=== PATIENT | female | born 1985 | race African-American/Black ===

== ENCOUNTER 2019-10-22 04:22 | Emergency (ER) | payer MEDICAID ==
[2019-10-22] MEDS ORDERED: METFORMIN500 M2 PO (04:47)
[2019-10-22] MEDS ORDERED: LISINOPRIL5 MG PO (04:47)
[2019-10-22] MEDS ORDERED: ROWEEPRA500 MG PO (04:50)
[2019-10-22] MEDS ORDERED: LOVASTATIN10 MG PO (04:51)
[2019-10-22 04:55] LABS: HEMATOCRIT 37.4 % (37.0-47.0); HEMOGLOBIN 12.3 g/dl (12.0-16.0); IMMATURE GRANULOCYTES 0.4 % (0.0-5.0); MEAN CELL VOLUME 75.6 fL CALC (80.0-100.0); MEAN CORPUSCULAR HGB 24.8 pG CALC (26.0-32.0); MEAN CORPUSCULAR HGB CONC 32.9 g/dL CAL (32.0-36.0); NEUT# 4.03 thou/uL (2.00-7.15); RED BLOOD COUNT 4.95 mill/uL (4.20-5.60)
[2019-10-22 05:25] LABS: ALBUMIN 4.2 g/dL (3.2-5.0); ALKALINE PHOSPHATASE 134 u/l (38-126); ANION GAP 13 (6-22 (CALC)); BILIRUBIN, TOTAL 0.4 mg/dL (0.0-1.4); BUN 8 mg/dL (7-17); BUN/CREATININE RATIO 14 (12-20 (CALC)); CARBON DIOXIDE 26 mmol/l (22-30); CHLORIDE 102 mmol/l (95-108); CREATININE 0.6 mg/dL (0.5-1.0); ETHYL ALCOHOL 0 mg/dl (0-30); GFR > 60 ML/MIN (>=60 (CALC)); GFR FOR AFR.AMER. > 60 ML/MIN (>=60 (CALC)); SGOT/AST 26 u/l (14-36); SODIUM 137 mmol/l (137-146); TOTAL PROTEIN 7.5 g/dL (6.3-8.2)
[2019-10-22 05:32] LABS: URINE BILIRUBIN - DIPSTICK NEGATIVE (NEGATIVE); URINE BLOOD DIPSTICK NEGATIVE (NEGATIVE); URINE COLOR YELLOW; URINE GLUCOSE - DIPSTICK NEGATIVE (NEGATIVE); URINE KETONE NEGATIVE (NEGATIVE); URINE NITRITE - DIPSTICK NEGATIVE (Negative); URINE PH 5.5 (4.5-8.0); URINE PROTEIN - DIPSTICK NEGATIVE (NEG-TRACE); URINE SPECIFIC GRAVITY 1.025; URINE UROBILINOGEN - DIPSTICK 0.2 E.U./dL (0.2)
[2019-10-22 05:35] LABS: URINE LEUK ESTERASE TRACE (NEGATIVE)
[2019-10-22 05:37] LABS: MYOGLOBIN 18 ng/mL (0 - 62)
[2019-10-22] MEDS ORDERED: KEPPRA500 M2 PO (06:30)
[2019-10-22 06:43] VITALS: BP 120/62
== END 2019-10-22 06:41 | disposition home or self-care (01) ==
LOC: ED 04:22
PROVIDERS: Family Medicine
DX: G40.909 Epilepsy, unspecified, not intractable, without status epilepticus (principal); E11.9 Type 2 diabetes mellitus without complications; I10 Essential (primary) hypertension; Z79.84 Long term (current) use of oral hypoglycemic drugs; Z79.899 Other long term (current) drug therapy
CPT/HCPCS: J1953

== ENCOUNTER 2020-07-30 12:12 | Emergency (ER) | payer OTHER ==
[~2020-07-30] VITALS: Ht 157.5 cm; Wt 81.0 kg
[~2020-07-30 12:12] MED LIST: KEPPRA500 M2 PO; LISINOPRIL5 MG PO; LOVASTATIN10 MG PO; METFORMIN500 M2 PO; ROWEEPRA500 MG PO
[2020-07-30 13:19] LABS: HEMATOCRIT 38.4 % (37.0-47.0); HEMOGLOBIN 12.6 g/dl (12.0-16.0); IMMATURE GRANULOCYTES 0.4 % (0.0-5.0); MEAN CELL VOLUME 75.1 fL CALC (80.0-100.0); MEAN CORPUSCULAR HGB 24.7 pG CALC (26.0-32.0); MEAN CORPUSCULAR HGB CONC 32.8 g/dL CAL (32.0-36.0); NEUT# 5.64 thou/uL (2.00-7.15); RED BLOOD COUNT 5.11 mill/uL (4.20-5.60)
[2020-07-30 13:25] LABS: URINE BILIRUBIN - DIPSTICK NEGATIVE (NEGATIVE); URINE BLOOD DIPSTICK NEGATIVE (NEGATIVE); URINE COLOR YELLOW; URINE GLUCOSE - DIPSTICK NEGATIVE (NEGATIVE); URINE KETONE NEGATIVE (NEGATIVE); URINE LEUK ESTERASE NEGATIVE (NEGATIVE); URINE PH 7.5 (4.5-8.0); URINE PROTEIN - DIPSTICK NEGATIVE (NEG-TRACE); URINE UROBILINOGEN - DIPSTICK 0.2 E.U./dL (0.2)
[2020-07-30 13:30] LABS: URINE NITRITE - DIPSTICK NEGATIVE (Negative)
[2020-07-30 13:36] LABS: ALBUMIN 4.5 g/dL (3.2-5.0); ALKALINE PHOSPHATASE 93 u/l (38-126); ANION GAP 14 (6-22 (CALC)); BUN 4 mg/dL (7-17); BUN/CREATININE RATIO 7 (12-20 (CALC)); CARBON DIOXIDE 25 mmol/l (22-30); CHLORIDE 101 mmol/l (95-108); CREATININE 0.6 mg/dL (0.5-1.0); ETHYL ALCOHOL 0 mg/dl (0-30); GFR > 60 ML/MIN (>=60 (CALC)); GFR FOR AFR.AMER. > 60 ML/MIN (>=60 (CALC)); LIPASE 37 u/l (23-300); MAGNESIUM 2.2 mg/dL (1.6-2.3); POTASSIUM 4.1 mmol/l (3.5-5.1); SGOT/AST 33 u/l (14-36); SODIUM 136 mmol/l (137-146); TOTAL PROTEIN 8.1 g/dL (6.3-8.2)
[2020-07-30 13:42] LABS: ACT PARTIAL THROMBO TIME 23.6 SECONDS (20.0-32.5); PROTHROMBIN TIME 9.7 SECONDS (9.0-12.5)
[2020-07-30 13:45] LABS: BILIRUBIN, TOTAL 0.8 mg/dL (0.0-1.4)
[2020-07-30 15:06] VITALS: BP 112/64
== END 2020-07-30 15:14 | disposition home or self-care (01) ==
LOC: ED 12:12
DX: G40.909 Epilepsy, unspecified, not intractable, without status epilepticus (principal); M25.512 Pain in left shoulder; M25.551 Pain in right hip; I10 Essential (primary) hypertension; E11.9 Type 2 diabetes mellitus without complications; Z79.84 Long term (current) use of oral hypoglycemic drugs

== ENCOUNTER 2020-11-08 20:15 | Emergency (ER) | payer OTHER ==
[~2020-11-08] VITALS: Ht 157.5 cm; Wt 93.2 kg
[2020-11-08 20:49] LABS: HEMATOCRIT 36.3 % (37.0-47.0); HEMOGLOBIN 12.1 g/dl (12.0-16.0); IMMATURE GRANULOCYTES 0.3 % (0.0-5.0); MEAN CELL VOLUME 73.8 fL CALC (80.0-100.0); MEAN CORPUSCULAR HGB 24.6 pG CALC (26.0-32.0); MEAN CORPUSCULAR HGB CONC 33.3 g/dL CAL (32.0-36.0); NEUT# 3.93 thou/uL (2.00-7.15); RED BLOOD COUNT 4.92 mill/uL (4.20-5.60); RED CELL DISTRI WIDTH 14.2 % (11.5-15.5)
[2020-11-08 20:50] LABS: URINE BILIRUBIN - DIPSTICK NEGATIVE (NEGATIVE); URINE BLOOD DIPSTICK NEGATIVE (NEGATIVE); URINE COLOR YELLOW; URINE GLUCOSE - DIPSTICK NEGATIVE (NEGATIVE); URINE KETONE TRACE mg/dL (NEGATIVE); URINE LEUK ESTERASE NEGATIVE (NEGATIVE); URINE PH 5.5 (4.5-8.0); URINE PROTEIN - DIPSTICK NEGATIVE (NEG-TRACE); URINE SPECIFIC GRAVITY 1.025; URINE UROBILINOGEN - DIPSTICK 0.2 E.U./dL (0.2)
[2020-11-08 20:51] LABS: URINE NITRITE - DIPSTICK NEGATIVE (Negative)
[2020-11-08 21:05] LABS: ALBUMIN 3.9 g/dL (3.2-5.0); ALKALINE PHOSPHATASE 76 u/l (38-126); ANION GAP 14 (6-22 (CALC)); BUN 5 mg/dL (7-17); BUN/CREATININE RATIO 9 (12-20 (CALC)); CARBON DIOXIDE 23 mmol/l (22-30); CHLORIDE 104 mmol/l (95-108); CREATININE 0.6 mg/dL (0.5-1.0); ETHYL ALCOHOL 0 mg/dl (0-30); GFR > 60 ML/MIN (>=60 (CALC)); GFR FOR AFR.AMER. > 60 ML/MIN (>=60 (CALC)); PHENYTOIN (DILANTIN) < 3 ug/mL (10 - 20); POTASSIUM 3.7 mmol/l (3.5-5.1); SGOT/AST 27 u/l (14-36); SODIUM 138 mmol/l (137-146); TOTAL PROTEIN 7.2 g/dL (6.3-8.2)
[2020-11-08 21:07] LABS: BILIRUBIN, TOTAL 0.3 mg/dL (0.0-1.4)
[2020-11-08 21:26] VITALS: BP 118/66
== END 2020-11-08 21:21 | disposition home or self-care (01) ==
LOC: ED 20:15
PROVIDERS: Emergency Medicine
DX: G40.909 Epilepsy, unspecified, not intractable, without status epilepticus (principal); E11.9 Type 2 diabetes mellitus without complications; I10 Essential (primary) hypertension; Z79.84 Long term (current) use of oral hypoglycemic drugs

== ENCOUNTER 2020-12-19 11:21 | Emergency (ER) | payer OTHER ==
[2020-12-19 12:06] LABS: HEMATOCRIT 40.6 % (37.0-47.0); HEMOGLOBIN 13.2 g/dl (12.0-16.0); IMMATURE GRANULOCYTES 0.3 % (0.0-5.0); MEAN CELL VOLUME 75.9 fL CALC (80.0-100.0); MEAN CORPUSCULAR HGB 24.7 pG CALC (26.0-32.0); MEAN CORPUSCULAR HGB CONC 32.5 g/dL CAL (32.0-36.0); NEUT# 1.79 thou/uL (2.00-7.15); RED BLOOD COUNT 5.35 mill/uL (4.20-5.60); RED CELL DISTRI WIDTH 14.3 % (11.5-15.5)
[2020-12-19 12:11] LABS: URINE BILIRUBIN - DIPSTICK NEGATIVE (NEGATIVE); URINE BLOOD DIPSTICK TRACE-INTACT (NEGATIVE); URINE COLOR YELLOW; URINE GLUCOSE - DIPSTICK NEGATIVE (NEGATIVE); URINE KETONE NEGATIVE (NEGATIVE); URINE PROTEIN - DIPSTICK NEGATIVE (NEG-TRACE); URINE UROBILINOGEN - DIPSTICK 0.2 E.U./dL (0.2)
[2020-12-19 12:14] LABS: URINE LEUK ESTERASE SMALL (NEGATIVE); URINE NITRITE - DIPSTICK NEGATIVE (Negative)
[2020-12-19 12:15] LABS: URINE BACTERIA FEW hpf; URINE EPITHELIAL CELLS FEW EPI/hpf (0-FEW); URINE RBC 0-2 RBC/hpf (0-5)
[2020-12-19 12:21] LABS: ALBUMIN 4.2 g/dL (3.2-5.0); ALKALINE PHOSPHATASE 68 u/l (38-126); ANION GAP 16 (6-22 (CALC)); BUN 5 mg/dL (7-17); BUN/CREATININE RATIO 8 (12-20 (CALC)); CARBON DIOXIDE 24 mmol/l (22-30); CHLORIDE 103 mmol/l (95-108); CREATININE 0.7 mg/dL (0.5-1.0); GFR > 60 ML/MIN (>=60 (CALC)); GFR FOR AFR.AMER. > 60 ML/MIN (>=60 (CALC)); LIPASE 65 u/l (23-300); POTASSIUM 4.1 mmol/l (3.5-5.1); PROTHROMBIN TIME 10.4 SECONDS (9.0-12.5); SODIUM 138 mmol/l (137-146); TOTAL PROTEIN 8.2 g/dL (6.3-8.2)
[2020-12-19 12:23] LABS: BILIRUBIN, TOTAL 0.7 mg/dL (0.0-1.4); SGOT/AST 58 u/l (14-36)
[2020-12-19 12:55] VITALS: BP 104/58
== END 2020-12-19 13:06 | disposition home or self-care (01) ==
LOC: ED 11:21
PROVIDERS: Family Medicine
DX: U07.1 COVID-19 (principal); N39.0 Urinary tract infection, site not specified; E11.9 Type 2 diabetes mellitus without complications; I10 Essential (primary) hypertension; G40.909 Epilepsy, unspecified, not intractable, without status epilepticus

== ENCOUNTER 2020-12-21 18:23 | Inpatient (IN) | payer OTHER ==
[~2020-12-21] VITALS: Ht 157.5 cm; Wt 100.0 kg
--- NOTE | 2020-12-21 18:29 | NUR ---
PT IMMEDIATELY TO RM 9 VIA EMS STRETCHER FOR B/S TRIAGE.
[2020-12-21 18:58] LABS: HEMATOCRIT 39.2 % (37.0-47.0); HEMOGLOBIN 12.8 g/dl (12.0-16.0); IMMATURE GRANULOCYTES 0.2 % (0.0-5.0); MEAN CELL VOLUME 75.7 fL CALC (80.0-100.0); MEAN CORPUSCULAR HGB 24.7 pG CALC (26.0-32.0); MEAN CORPUSCULAR HGB CONC 32.7 g/dL CAL (32.0-36.0); NEUT# 2.37 thou/uL (2.00-7.15); RED BLOOD COUNT 5.18 mill/uL (4.20-5.60); RED CELL DISTRI WIDTH 14.2 % (11.5-15.5)
--- NOTE | 2020-12-21 18:58 | NUR ---
REPORT TO MONY YOUNG
[2020-12-21 19:00] LABS: GFR > 60 ML/MIN (>=60 (CALC)); GFR FOR AFR.AMER. > 60 ML/MIN (>=60 (CALC))
--- NOTE | 2020-12-21 19:00 | NUR ---
IN ROOM INRODUCED SELF TO PT. NO C/O V/S STABLE.
[2020-12-21 19:14] LABS: ALBUMIN 4.2 g/dL (3.2-5.0); ALKALINE PHOSPHATASE 76 u/l (38-126); ANION GAP 15 (6-22 (CALC)); BILIRUBIN, TOTAL 0.5 mg/dL (0.0-1.4); BUN 5 mg/dL (7-17); BUN/CREATININE RATIO 8 (12-20 (CALC)); C-REACTIVE PROTEIN 1.3 mg/dL (0-0.9); CARBON DIOXIDE 23 mmol/l (22-30); CHLORIDE 103 mmol/l (95-108); CREATININE 0.6 mg/dL (0.5-1.0); GFR > 60 ML/MIN (>=60 (CALC)); GFR FOR AFR.AMER. > 60 ML/MIN (>=60 (CALC)); SGOT/AST 51 u/l (14-36); SODIUM 136 mmol/l (137-146); TOTAL PROTEIN 8.4 g/dL (6.3-8.2)
--- NOTE | 2020-12-21 20:00 | NUR ---
PT. MADE AWARE OF ADMISSION, VERBALIZED UNDERSTANDING.
[2020-12-21] MEDS ORDERED: KEPPRA500 M2 PO (20:57)
--- NOTE | 2020-12-21 21:28 | NUR ---
Admission Note Report Given to: GHULAM YOUNG Transported by: Wheelchair X Stretcher Transported with: X Nurse Transporter X Patent IV X O2 X [employer] Location: ICU X [facility]
--- NOTE | 2020-12-21 21:30 | NUR ---
PT. TAKEN TO [facility] FLOOR VIA W/C NO C/O AT THIS TIME.
[2020-12-21 21:34] VITALS: BP 110/74
--- NOTE | 2020-12-21 22:29 | NUR ---
PATIENT ARRIVED TO THE FLOOR/ROOM 285 AT 2134 IN STABLE CONDITION VIA WC ESCORTED BY STAFF. PATIENT IS COVID +. O2 2L N/C IN PLACE. RESPIRATIONS EVEN AND SHALLOW. LUNG SOUNDS DIMINISHED THROUGHTOUT. HR REG. ASSESSMENT COMPLETED AND CHARTED. FALL PRECAUTIONS IN PLACE. IVF INITIATED. BED IN LOW POSITION. CALL LIGHT WITHIN REACH.
[2020-12-22 05:00] VITALS: BP 115/78
--- NOTE | 2020-12-22 05:03 | NUR ---
REPORT REC FROM Madison COSTELLO RN. PT LAYING IN BED. NO DISTRESS NOTED. CALL LIGHT WITHIN REACH.
[2020-12-22 06:00] LABS: HEMATOCRIT 39.7 % (37.0-47.0); HEMOGLOBIN 12.7 g/dl (12.0-16.0); IMMATURE GRANULOCYTES 0.3 % (0.0-5.0); MEAN CELL VOLUME 76.9 fL CALC (80.0-100.0); MEAN CORPUSCULAR HGB 24.6 pG CALC (26.0-32.0); NEUT# 1.64 thou/uL (2.00-7.15); RED BLOOD COUNT 5.16 mill/uL (4.20-5.60); RED CELL DISTRI WIDTH 14.3 % (11.5-15.5)
[2020-12-22 06:24] LABS: ALBUMIN 3.9 g/dL (3.2-5.0); ALKALINE PHOSPHATASE 63 u/l (38-126); ANION GAP 17 (6-22 (CALC)); BILIRUBIN, TOTAL 0.3 mg/dL (0.0-1.4); BUN 6 mg/dL (7-17); BUN/CREATININE RATIO 11 (12-20 (CALC)); C-REACTIVE PROTEIN 1.3 mg/dL (0-0.9); CARBON DIOXIDE 24 mmol/l (22-30); CHLORIDE 105 mmol/l (95-108); CREATININE 0.6 mg/dL (0.5-1.0); GFR > 60 ML/MIN (>=60 (CALC)); GFR FOR AFR.AMER. > 60 ML/MIN (>=60 (CALC)); POTASSIUM 4.6 mmol/l (3.5-5.1); SGOT/AST 48 u/l (14-36); SODIUM 141 mmol/l (137-146); TOTAL PROTEIN 7.4 g/dL (6.3-8.2)
[2020-12-22 07:15] VITALS: BP 118/78
--- NOTE | 2020-12-22 07:15 | NUR ---
PATIENT SITTING UP IN CHAIR AT THIS TIME. ANNUAL GIVING OFFICER DONE SEE INTERVENTIONS. PATIENT ALERT AND ORIENTED AND BED LINEN CHANGED DUE TO IV COMING APART AND LEAKING ON LINEN. PATIENTS LUNG GARCIA ARE DIMINISHED AT THIS TIME. PATIENT DENIES ANY PAIN AT THIS TIME. O2 REMAINS ON AT 2 LITERS AND SPO2 IS 97%. PATIENT GIVEN EDUCATION ON COVID AND RECOVERY AND VERBALIZES UNDERSTANDING OF EDUCATION. PATIENT ASSISTED BACK TO BED AND SIDERAILS ARE UP AND PADDED DUE TO HISTORY OF SEIZURES. CALL LIGHT WITHIN REACH.
--- NOTE | 2020-12-22 08:15 | NUR ---
PATIENT IV FOUND TO BE INFILTRATED AT THIS TIME. IV REMOVED AND NEW IV STARTED #22 IN RIGHT HAND. ICE PACK PLACED ON LAC TO HELP WITH INFILTRATIONS. NO REDDNESS NOTED AND SMALL EDEMA NOTED. PATIENT TOLERATED PROCEEDURE WITHOUT INCIDENT.
--- NOTE | 2020-12-22 09:38 | NUR ---
PT note Patient is screened for PT intervention and no needs are identified at this time
--- NOTE | 2020-12-22 11:51 | NUR ---
PATIENT RESTING IN BED AT THIS TIME. O2 REMAINS ON AT 2 LITERS. PATIENT IS EXHIBITING A DRY NON-PRODUCTIVE COUGH AT THIS TIME. PATIENT DENIES ANY PAIN. LEFT AC INFILTRATE SITE SWELLING HAS DECREASED AND PATIENT STATES IT IS NOT "HURTING" NO REDDNESS NOTED. SIDERAILS ARE UP X 2 AND PADDED DUE TO HISTORY OF SEIZURES. CALL LIGHT WITHIN REACH.
[2020-12-22 15:08] VITALS: BP 130/73
--- NOTE | 2020-12-22 15:28 | NUR ---
PATIENT RESTING IN BED AT THIS TIME. DENIES ANY PAIN OR NEEDS O2 REMAINS ON AT 2 LITERS. SIDERAILS ARE UP CALL LIGHT IS WITHIN REACH.
[2020-12-22 19:00] VITALS: BP 136/76
--- NOTE | 2020-12-22 20:00 | NUR ---
Received PT from day shift nurse. Pt oriented to person, place and time, alert, awake and cooperative. Assesment documented. Pt educated about plan of care, medications, covid-19 precautions and falls, safety precautions.
[2020-12-23] VITALS: BP 130/71
--- NOTE | 2020-12-23 | NUR ---
Hourly roundig provided. Pt observed sleep and calm, no complaint about pain. Re-educated about plan of care and medications.
--- NOTE | 2020-12-23 04:16 | NUR ---
Hourly rounding provided. Vitals signs are stable. No complain about pain. Re- educated about plan of care.
[2020-12-23 04:30] VITALS: BP 130/71
[2020-12-23 05:10] LABS: HEMOGLOBIN 10.9 g/dl (12.0-16.0); IMMATURE GRANULOCYTES 0.3 % (0.0-5.0); MEAN CELL VOLUME 76.2 fL CALC (80.0-100.0); MEAN CORPUSCULAR HGB 24.7 pG CALC (26.0-32.0); MEAN CORPUSCULAR HGB CONC 32.4 g/dL CAL (32.0-36.0); NEUT# 1.9 thou/uL (2.00-7.15); RED BLOOD COUNT 4.41 mill/uL (4.20-5.60); RED CELL DISTRI WIDTH 14.3 % (11.5-15.5)
[2020-12-23 05:21] LABS: HEMATOCRIT 33.6 % (37.0-47.0)
[2020-12-23 05:43] LABS: ALBUMIN 3.3 g/dL (3.2-5.0); ALKALINE PHOSPHATASE 58 u/l (38-126); ANION GAP 12 (6-22 (CALC)); BILIRUBIN, TOTAL 0.2 mg/dL (0.0-1.4); BUN 7 mg/dL (7-17); BUN/CREATININE RATIO 13 (12-20 (CALC)); CARBON DIOXIDE 27 mmol/l (22-30); CHLORIDE 105 mmol/l (95-108); CREATININE 0.6 mg/dL (0.5-1.0); GFR > 60 ML/MIN (>=60 (CALC)); GFR FOR AFR.AMER. > 60 ML/MIN (>=60 (CALC)); POTASSIUM 4.4 mmol/l (3.5-5.1); SGOT/AST 62 u/l (14-36); SODIUM 140 mmol/l (137-146); TOTAL PROTEIN 6.3 g/dL (6.3-8.2)
[2020-12-23 07:15] VITALS: BP 130/71
--- NOTE | 2020-12-23 07:15 | NUR ---
PATIENT LAYING IN BED. DENEIS ANY NEEDS OR PAIN CURRENTLY. PATIENT SIDERAILS ARE PADDED FOR HX. OF SEIZURES. LUNGS REMAIN DIMINISHED THOUGHOUT. BIOMATHEMATICIAN DONE SEE INTERVENTIONS. CALL LIGHT IS WITHIN REACH. TELE MONITOR IN PLACE AND BEING MONITORED BY ED.
[2020-12-23] MEDS ORDERED: JANUVIA50 MG PO (07:26)
[2020-12-23] MEDS ORDERED: LEVETIRACETAM500 MG PO (07:28)
[2020-12-23] MEDS ORDERED: ALTOPREV20 MG PO (07:28)
[2020-12-23] MEDS ORDERED: METFORMIN500 M2 PO (07:29)
--- NOTE | 2020-12-23 11:31 | NUR ---
PATIENT LAYING IN BED AT THIS TIME. 02 REMAINS ON AT 2 LITERS. PATIENT ENCOURGED TO GET UP TODAY AND SIT IN CHAIR. PATIENT DENIES ANY PAIN AT THIS TIME. DRY COUGH NOTED AT THIS TIME. SIDERAILS ARE UP AND PADDED DUE TO HX. OF SEZIURES. CALL LIGHT WITHIN REACH AND TELE MONTIOR ON AND BEING MONITORED BY ED.
[2020-12-23 11:33] VITALS: BP 103/68
[2020-12-23 16:00] VITALS: BP 108/68
--- NOTE | 2020-12-23 16:05 | NUR ---
PATIENT RESTING IN BED AT THIS TIME. PATIENT STATES SHE HAS NO PAIN WHEN ASKED PATIENT HAS FLAT AFFECT WHEN RESPONDING BUT STATES SHE IS "FINE". O2 REMAINS ON AT 2 LITERS TELE MONITOR ON AND BEING MONITORED BY ED.
--- NOTE | 2020-12-23 20:00 | NUR ---
PATIENT IS AWAKE IN BED A&OX3. DENIES PAIN. RESPIRATIONS EVEN, ON TELEMETRY. NO COMPLAINTS. ASSESSMENT COMPLETED AND CHARTED. BED IN LOW POSITION. CALL LIGHT WITHIN REACH. SIDE RAILS PADDED.
--- NOTE | 2020-12-23 23:44 | NUR ---
PATIENT C/O DISCOMFORT FROM ZITHROMAX IV RUNNING. IT WAS STARTED AT 125 ML/HR D/T BEING ADVISED THAT PATIENT IS SENSITIVE AND TO RUN SLOWLY. IT WAS SLOWED TO 75ML/HR AROUND 2129 AND IMPREGNATOR ELECTROLYTIC CAPACITORS OBSERVED IV HANGING. PATIENT TOOK OUT HERSELF. CATHETER INTACT. THIS NURSE AND TRAN ATTEMPTED X4 TOTAL WITHOUT SUCCESS. WAITING FOR ANOTHER NURSE TO ATTEMPT VAD INSERTION. PATIENT CURRENTLY RESTING IN BED WITHOUT DISTRESS. BED IN LOW POSITION. SEIZURE PRECAUTIONS IN PLACE.
--- NOTE | 2020-12-24 00:01 | NUR ---
PATIENT CURRENTLY RESTING IN BED. NO VAD AT THIS TIME. NO ACUTE DISTRESS OBSERVED.
[2020-12-24 01:05] VITALS: BP 105/49
--- NOTE | 2020-12-24 02:14 | NUR ---
NEW VAD #20 LAC OBTAINED BY PRIYA YOUNG X1 ATTEMPT. IVF NOW INFUSING.
[2020-12-24 02:28] LABS: HEMOGLOBIN 10.6 g/dl (12.0-16.0); IMMATURE GRANULOCYTES 0.8 % (0.0-5.0); MEAN CORPUSCULAR HGB 24.4 pG CALC (26.0-32.0); MEAN CORPUSCULAR HGB CONC 32.1 g/dL CAL (32.0-36.0); NEUT# 1.84 thou/uL (2.00-7.15); RED BLOOD COUNT 4.34 mill/uL (4.20-5.60); RED CELL DISTRI WIDTH 14.4 % (11.5-15.5)
[2020-12-24 02:35] LABS: ALBUMIN 3.3 g/dL (3.2-5.0); ALKALINE PHOSPHATASE 54 u/l (38-126); ANION GAP 12 (6-22 (CALC)); BILIRUBIN, TOTAL 0.2 mg/dL (0.0-1.4); BUN 9 mg/dL (7-17); BUN/CREATININE RATIO 14 (12-20 (CALC)); C-REACTIVE PROTEIN < 0.5 mg/dL (0-0.9); CARBON DIOXIDE 27 mmol/l (22-30); CHLORIDE 106 mmol/l (95-108); CREATININE 0.6 mg/dL (0.5-1.0); GFR > 60 ML/MIN (>=60 (CALC)); GFR FOR AFR.AMER. > 60 ML/MIN (>=60 (CALC)); POTASSIUM 4.2 mmol/l (3.5-5.1); SGOT/AST 53 u/l (14-36); SODIUM 141 mmol/l (137-146); TOTAL PROTEIN 6.3 g/dL (6.3-8.2)
[2020-12-24 03:40] VITALS: BP 117/72
--- NOTE | 2020-12-24 04:13 | NUR ---
RESTING QUIETLY. IVF INFUSING. NO COMPLAINTS.
--- NOTE | 2020-12-24 05:37 | NUR ---
TELEMETRY CALLED. PT HR DROPPED TO 34 BPM BUT CAME UP TO 35-37. PATIENT ASYMPTOMATIC.
[2020-12-24 07:15] VITALS: BP 117/78
--- NOTE | 2020-12-24 07:15 | NUR ---
PATIENT LAYING IN BED AT THIS TIME. PATIENT 02 ON AT 2 LITERS AND SPO2 IS 96%. PATIENT DENEIS ANY NEEDS AND OR PAIN. LUNG SOUNDS ARE DIMINISHED IN THE LOWER BASES AND CLEAR AT TOP. TELE MONITOR IS IN PLACE AND BEING MONITORED BY ED. FINISHED STOCK INSPECTOR DONE SEE INTERVENTIONS. SIDERAILS ARE UP AND PADDED FOR HX. OF SEIZURES. CALL LIGHT IS WITHIN REACH AT THIS TIME.
--- NOTE | 2020-12-24 07:50 | NUR ---
ED CALLED THIS NURSE TO ADVISE THAT PATIENT HEART RATE WAS RUNNING S-CALLIE AT 36-38. PROVIDER DAKOTAH GUTIERREZ MADE AWARE OF HEART RATE AND EKG ORDERED AT THIS TIME. WILL CONTINUE TO MONITOR.
[2020-12-24 12:04] VITALS: BP 98/60
--- NOTE | 2020-12-24 12:16 | NUR ---
PATIENT SITTING UP IN CHAIR AT THIS TIME. CALL LIGHT WITHIN REACH DR GO IN TO SEE PATIENT. O2 ON AT 2 LITERS TELE MONITOR ON AND BEING MONITORED BY ED.
[2020-12-24 16:08] VITALS: BP 107/71
--- NOTE | 2020-12-24 16:15 | NUR ---
PATIENT SITTING UP IN CHAIR AT THIS TIME DENEIS ANY NEEDS TELE MONITOR MICROBIOLOGY TECHNICIAN LIGHT WITHIN REACH O2 ON AT 2 LITER.
[2020-12-24 19:22] VITALS: BP 100/58
--- NOTE | 2020-12-24 20:00 | NUR ---
PATIENT ALERT AND ORIENTED. ABLE TO MAKE NEEDS KNOWN. RESPRATIONS NONLABORED. ON TELMETRY. NO COMPLAINTS. SEIZURE PRECAUTIONS. IVF INFUSING ORDERED. ASESSMENT COMPLETED AND CHARTED. BED IN LOW POSITION. CALL LIGHT WITHIN REACH.
[2020-12-25 00:17] VITALS: BP 122/61
[2020-12-25 05:05] VITALS: BP 126/68
[2020-12-25 06:00] LABS: HEMOGLOBIN 11.2 g/dl (12.0-16.0); MEAN CELL VOLUME 76.9 fL CALC (80.0-100.0); MEAN CORPUSCULAR HGB 24.6 pG CALC (26.0-32.0); NEUT# 2.46 thou/uL (2.00-7.15); RED BLOOD COUNT 4.55 mill/uL (4.20-5.60); RED CELL DISTRI WIDTH 14.5 % (11.5-15.5)
[2020-12-25 06:20] LABS: ALBUMIN 3.1 g/dL (3.2-5.0); ALKALINE PHOSPHATASE 54 u/l (38-126); ANION GAP 11 (6-22 (CALC)); BILIRUBIN, TOTAL 0.3 mg/dL (0.0-1.4); BUN 8 mg/dL (7-17); BUN/CREATININE RATIO 13 (12-20 (CALC)); CARBON DIOXIDE 25 mmol/l (22-30); CHLORIDE 107 mmol/l (95-108); CREATININE 0.6 mg/dL (0.5-1.0); GFR > 60 ML/MIN (>=60 (CALC)); GFR FOR AFR.AMER. > 60 ML/MIN (>=60 (CALC)); MAGNESIUM 2.1 mg/dL (1.6-2.3); SGOT/AST 39 u/l (14-36); SODIUM 140 mmol/l (137-146)
--- NOTE | 2020-12-25 07:05 | NUR ---
REPORT RECEIVED FROM HECTOR PARMAR
--- NOTE | 2020-12-25 09:05 | NUR ---
PT RESTING IN SEMI FOWLERS POSITION,A&O X3 WITH FLAT AFFECT NOTED;VS OBTAINED AND ASSESSMENT COMPLETED;PT DENIES ANY CURRENT PAIN OR DISCOMFORTS,PAIN SCALE AND REPORTING EDUCATED;RESPIRATIONS SHALLOW ON O2 @ 2L VIA NC,CLEAR/DIMINISHED LUNG SOUNDS NOTED WITH NON-PRODUCTIVE COUGH;ABDOMEN SOFT ON PALPATION AND ACTIVE IN ALL 4 QUADRANTS;WEAK PEDAL PULSES;SKIN INTACT;TELE MONITORING IN PLACE WITH HR RUNNING IN THE 30'S-MD AWARE;#20G TO LAC INFUSING NS @ 75ML/HR,SITE APPEARS HEALTHY;ACCUCHECK 100, NO COVERAGE NEEDED;PT REMAINS IN AIR/CONTACT PRECAUTIONS DUE TO COVID19 DX;SEIZURE PRECAUTIONS ALSO IN PLACE;PT DENIES ANY ADDITIONAL NEEDS AND IS ENCOURAGED TO CALL FOR ASSISTANCE IF NEEDED;FALL PRECAUTIONS IN PLACE WITH BED IN THE LOWEST POSITION AND CALL LIGHT IN REACH;WILL CONTINUE TO MONITOR
[2020-12-25 09:06] VITALS: BP 139/72
[2020-12-25 11:00] VITALS: BP 99/61
--- NOTE | 2020-12-25 11:10 | NUR ---
AT BEDSIDE DISCUSSING POC.
--- NOTE | 2020-12-25 11:50 | NUR ---
PT RESTING IN SEMI FOWLERS POSITION;RESPIRATIONS SHALLOW ON RA, OXYGEN PREVIOUSY REMOVED BY FOR OXYGEN QUALIFICATION TEST;O2 SATS 84% ON RA AND O2 @ 2L VIA NC REPLACED AT THIS TIME.O2 SATS QUICKLY DARRICK TO 92%;CASE MANAGEMENT AND ANRP NOTIFIED;PT RE-POSITIONED INTO RECLINER;PT DENIES ANY CURRENT PAIN OR NEEDS;IV SITE PATENT INFUSING NS @ 10ML/HR PER ORDER,ABX HUNG AT THIS TIME;ACCUCHECK 108, NO COVERAGE NEEDED;TELE MONITORING IN PLACE;PT DENIES ANY ADDITIONAL NEEDS AND IS ENCOURAGED TO CALL FOR ASSISTANCE IF NEEDED;CALL LIGHT IN REACH;WILL CONTINUE TO MONITOR
[2020-12-25] MEDS ORDERED: DOXYCYCL HYC100 MG PO (12:42)
[2020-12-25] MEDS ORDERED: DEXAMETHASON6 MG PO (12:42)
[2020-12-25] MEDS ORDERED: ASPIRIN REGULA325 M1 PO (12:44)
[2020-12-25] MEDS ORDERED: OXY1 (12:46)
--- NOTE | 2020-12-25 13:55 | NUR ---
PT FOUND ON COUCH WITH OXYGEN REMOVED, TELE MONITORING TAKEN OFF AND IV SITE REMOVED WITH CATHETER INTACT;WHEN ASKED PT WHAT HAD HAPPEN SHE STATES "IM READY TO GO HOME", PT EDUCATED ON WAIT TIME DUE TO HOME OXYGEN DELIVERY AND VERBALIZES UNDERSTANDING;PT RE-POSITIONED BACK INTO RECLINER AND OXYGEN RE-APPLIED @ 2L;PT DENIES ANY ADDITIONAL NEEDS;ENCOURAGED TO CALL FOR ASSISTANCE IF NEEDED;CALL LIGHT IN REACH;WILL CONTINUE TO MONITOR
--- NOTE | 2020-12-25 15:25 | NUR ---
PT OOB RESTING IN RECLINER;RESPIRATIONS SHALLOW ON O2 @ 2L VIA NC;PT DENIES ANY CURRENT PAIN OR DISCOMFORTS;PT EDUCATED ON D/C PLANS INCLUDING PLANS TO D/C HOME TODAY IF HOME OXYGEN CAN BE SET UP PRIOR TO LEAVING;PT ALSO EDUCATED THAT IF OXYGEN CAN NOT BE SET UP FOR HOME D/C TODAY A NEW IV SITE WILL NEED TO BE OBTAINED,PT VERBALIZES UNDERSTANDING;PT DENIES ANY ADDITIONAL NEEDS;ENCOURAGED TO CALL FOR ASSISTANCE IF NEEDED;CALL LIGHT IN REACH;WILL CONTINUE TO MONITOR
[2020-12-25 15:36] VITALS: BP 135/69
--- NOTE | 2020-12-25 16:45 | NUR ---
X3 ATTEMPTS UNSUCCESSFUL AT OBTAINING A NEW IV SITE. WILL HAVE ANOTHER STAFF MEMBER ATTEMPT.WILL CONTINUE TO MONITOR
--- NOTE | 2020-12-25 18:08 | NUR ---
HOME OXYGEN DELIVERED AT THIS TIME;PT EDUCATED ON USE AND VERBALIZES UNDERSTANDING;ALL DISCHARGE INSTRUCTIONS PROVIDED;PT INSTRUCTED TO F/U WITH PCP IN THE NEXT WEEK,CONTINUE ROUTINE MEDICATIONS,TAKE ABX AND STEROIDS DIRECTED RX SENT TO [facility], TAKE ASPIRIN DIRECTED ( SENT TO [facility]), MONITOR BLOOD GLUCOSE,SELF ISOLATE FOR 14 DAYS FROM INITIAL S/S, HOME OXYGEN EDUCATED AND PT INSTRUCTED TO KEEP O2 SATS ABOVE 92%;CALL PLACED TO [employer]HER IN [employer] FOR PICKUP PER REQUEST AND Beatrice BROWN STATED "I DONT KNOW IF I CAN GET OUT THERE TODAY" THEN PROCEDED TO HANG UP ON CUSTOMER SERVICES SUPERVISOR;PT NOTIFIED AND PT TO CALL FAMILY FOR TRANSPORTATION HOME;WHEELCHAIR TO BE PROVIDED FOR D/C HOME;WILL CONTINUE TO MONITOR
--- NOTE | 2020-12-25 18:15 | NUR ---
Discharge instructions given. Patient verbalizes understanding of same. Discharged in stable condition via Wheelchair to Home with family. All belongings sent with pt. PT TRANSPORTEDTO LOBBY IN STABLE CONDITION VIA WHEELCHAIR ACCOMPANIED BY JANICE PEÑA;ALL BELONINGS LEFT WITH PT INCLUDING HOME OXYGEN TANK;PER PT MOTHER IN [employer] TO TRANSPORT PT HOME.
--- NOTE | 2020-12-28 11:22 | NUR ---
Post discharge pneumonia call coompleted today, 12/28/20. Pt. sttates she is doing fine. No fever, chills, or SOB. Pt. is taking prescribed medication without issue. No F/U appt has been scheduled yet, but pt states she will contact PCP and make appt. No questions or concerns expressed at this time.
== END 2020-12-25 18:15 | disposition home or self-care (01) | DRG 177 ==
LOC: ED 18:23 → ED-I 20:00 → ED 20:05 → MS2 20:06
PROVIDERS: Family Medicine; Nurse Practitioner; ADMIT Internal Medicine; ATTEND Internal Medicine
PROC: XW033E5 Introduction of Remdesivir Anti-infective into Peripheral Vein, Percutaneous Approach, New Technology Group 5 (ICD-10-PCS; principal; 2020-12-22)
PROC: 3E0234Z Introduction of Serum, Toxoid and Vaccine into Muscle, Percutaneous Approach (ICD-10-PCS; 2020-12-22)
DX: U07.1 COVID-19 (principal); J12.82 Pneumonia due to coronavirus disease 2019; R09.02 Hypoxemia; I10 Essential (primary) hypertension; E11.9 Type 2 diabetes mellitus without complications; E78.5 Hyperlipidemia, unspecified; G40.909 Epilepsy, unspecified, not intractable, without status epilepticus; R00.1 Bradycardia, unspecified; T37.5X5A Adverse effect of antiviral drugs, initial encounter; T36.1X5A Adverse effect of cephalosporins and other beta-lactam antibiotics, initial encounter; T36.3X5A Adverse effect of macrolides, initial encounter; Z79.84 Long term (current) use of oral hypoglycemic drugs; Z23 Encounter for immunization
CPT/HCPCS: J1650; Q9967

== ENCOUNTER 2021-03-23 10:54 | Emergency (ER) | payer OTHER ==
[~2021-03-23] VITALS: Ht 157.5 cm; Wt 90.0 kg
[~2021-03-23 10:54] MED LIST changes: +ALTOPREV20 MG PO; +ASPIRIN REGULA325 M1 PO; +DEXAMETHASON6 MG PO; +DOXYCYCL HYC100 MG PO; +JANUVIA50 MG PO; +LEVETIRACETAM500 MG PO; +OXY1
[2021-03-23 11:45] LABS: HEMATOCRIT 35.2 % (37.0-47.0); HEMOGLOBIN 11.7 g/dl (12.0-16.0); IMMATURE GRANULOCYTES 0.2 % (0.0-5.0); MEAN CELL VOLUME 75.1 fL CALC (80.0-100.0); MEAN CORPUSCULAR HGB 24.9 pG CALC (26.0-32.0); MEAN CORPUSCULAR HGB CONC 33.2 g/dL CAL (32.0-36.0); NEUT# 3.06 thou/uL (2.00-7.15); RED BLOOD COUNT 4.69 mill/uL (4.20-5.60); RED CELL DISTRI WIDTH 14.6 % (11.5-15.5)
[2021-03-23 12:11] LABS: ANION GAP 12 (6-22 (CALC)); BILIRUBIN, TOTAL 0.4 mg/dL (0.0-1.4); BUN 3 mg/dL (7-17); BUN/CREATININE RATIO 6 (12-20 (CALC)); CARBON DIOXIDE 25 mmol/l (22-30); CHLORIDE 106 mmol/l (95-108); CREATININE 0.6 mg/dL (0.5-1.0); GFR > 60 ML/MIN (>=60 (CALC)); GFR FOR AFR.AMER. > 60 ML/MIN (>=60 (CALC)); LIPASE 72 u/l (23-300); POTASSIUM 4.2 mmol/l (3.5-5.1); SGOT/AST 28 u/l (14-36); SODIUM 139 mmol/l (137-146); TOTAL PROTEIN 6.8 g/dL (6.3-8.2)
[2021-03-23 12:36] LABS: ALBUMIN 3.8 g/dL (3.2-5.0); ALKALINE PHOSPHATASE 93 u/l (38-126)
[2021-03-23 12:55] LABS: URINE BILIRUBIN - DIPSTICK NEGATIVE (NEGATIVE); URINE BLOOD DIPSTICK NEGATIVE (NEGATIVE); URINE COLOR YELLOW; URINE GLUCOSE - DIPSTICK NEGATIVE (NEGATIVE); URINE KETONE NEGATIVE (NEGATIVE); URINE LEUK ESTERASE NEGATIVE (NEGATIVE); URINE PROTEIN - DIPSTICK NEGATIVE (NEG-TRACE); URINE UROBILINOGEN - DIPSTICK 0.2 E.U./dL (0.2)
[2021-03-23 13:04] LABS: URINE NITRITE - DIPSTICK NEGATIVE (Negative)
[2021-03-23 13:38] VITALS: BP 117/80
== END 2021-03-23 13:48 | disposition home or self-care (01) ==
LOC: ED 10:54
PROVIDERS: Family Medicine
DX: G40.909 Epilepsy, unspecified, not intractable, without status epilepticus (principal); I10 Essential (primary) hypertension; E11.9 Type 2 diabetes mellitus without complications; Z79.84 Long term (current) use of oral hypoglycemic drugs
CPT/HCPCS: J1953

== ENCOUNTER 2021-04-25 22:07 | Emergency (ER) | payer OTHER ==
[~2021-04-25] VITALS: Ht 157.5 cm; Wt 114.0 kg
[2021-04-25 22:45] LABS: HEMATOCRIT 34.7 % (37.0-47.0); HEMOGLOBIN 11.9 g/dl (12.0-16.0); IMMATURE GRANULOCYTES 0.3 % (0.0-5.0); MEAN CELL VOLUME 74.9 fL CALC (80.0-100.0); MEAN CORPUSCULAR HGB 25.7 pG CALC (26.0-32.0); MEAN CORPUSCULAR HGB CONC 34.3 g/dL CAL (32.0-36.0); NEUT# 3.99 thou/uL (2.00-7.15); RED BLOOD COUNT 4.63 mill/uL (4.20-5.60); RED CELL DISTRI WIDTH 13.9 % (11.5-15.5)
[2021-04-25 22:55] LABS: ALBUMIN 4.1 g/dL (3.2-5.0); ALKALINE PHOSPHATASE 85 u/l (38-126); ANION GAP 15 (6-22 (CALC)); BILIRUBIN, TOTAL 0.5 mg/dL (0.0-1.4); BUN 6 mg/dL (7-17); BUN/CREATININE RATIO 9 (12-20 (CALC)); CARBON DIOXIDE 25 mmol/l (22-30); CHLORIDE 104 mmol/l (95-108); CREATININE 0.7 mg/dL (0.5-1.0); GFR > 60 ML/MIN (>=60 (CALC)); GFR FOR AFR.AMER. > 60 ML/MIN (>=60 (CALC)); POTASSIUM 3.9 mmol/l (3.5-5.1); SGOT/AST 22 u/l (14-36); SODIUM 140 mmol/l (137-146); TOTAL PROTEIN 7.4 g/dL (6.3-8.2)
[2021-04-26 00:25] LABS: URINE BILIRUBIN - DIPSTICK NEGATIVE (NEGATIVE); URINE BLOOD DIPSTICK NEGATIVE (NEGATIVE); URINE COLOR YELLOW; URINE GLUCOSE - DIPSTICK NEGATIVE (NEGATIVE); URINE KETONE NEGATIVE (NEGATIVE); URINE LEUK ESTERASE NEGATIVE (NEGATIVE); URINE PROTEIN - DIPSTICK NEGATIVE (NEG-TRACE); URINE UROBILINOGEN - DIPSTICK 0.2 E.U./dL (0.2)
[2021-04-26 00:26] LABS: URINE NITRITE - DIPSTICK NEGATIVE (Negative)
[2021-04-26 08:00] VITALS: BP 118/58
== END 2021-04-26 08:35 | disposition home or self-care (01) ==
LOC: ED 22:07
PROVIDERS: Emergency Medicine
DX: G40.409 Other generalized epilepsy and epileptic syndromes, not intractable, without status epilepticus (principal); I10 Essential (primary) hypertension; E11.9 Type 2 diabetes mellitus without complications; Z79.84 Long term (current) use of oral hypoglycemic drugs
CPT/HCPCS: J1953

== ENCOUNTER 2021-09-15 15:20 | Emergency (ER) | payer OTHER ==
[~2021-09-15] VITALS: Ht 157.5 cm; Wt 52.0 kg
[2021-09-15 17:03] VITALS: BP 124/83
== END 2021-09-15 17:21 | disposition home or self-care (01) ==
LOC: ED 15:20
DX: S61.300A Unspecified open wound of right index finger with damage to nail, initial encounter (principal); I10 Essential (primary) hypertension; E11.9 Type 2 diabetes mellitus without complications; G40.909 Epilepsy, unspecified, not intractable, without status epilepticus; Z79.84 Long term (current) use of oral hypoglycemic drugs; W22.8XXA Striking against or struck by other objects, initial encounter

== ENCOUNTER 2021-09-17 07:33 | Emergency (ER) | payer OTHER ==
[~2021-09-17] VITALS: Ht 157.5 cm; Wt 93.0 kg
[2021-09-17 07:58] VITALS: BP 85/65
[2021-09-17 07:59] VITALS: BP 130/89
[2021-09-17 08:31] VITALS: BP 120/86
[2021-09-17 09:01] VITALS: BP 127/109
[2021-09-17] MEDS ORDERED: TESSALON PERLE100 MG PO (09:39)
[2021-09-17] MEDS ORDERED: ZPAK PO (09:39)
== END 2021-09-17 09:46 | disposition home or self-care (01) ==
LOC: ED 07:33
DX: J06.9 Acute upper respiratory infection, unspecified (principal); I10 Essential (primary) hypertension; E11.9 Type 2 diabetes mellitus without complications; G40.909 Epilepsy, unspecified, not intractable, without status epilepticus; Z79.84 Long term (current) use of oral hypoglycemic drugs; Z20.822 Contact with and (suspected) exposure to COVID-19

== ENCOUNTER 2021-12-29 02:15 | Emergency (ER) | payer OTHER ==
[2021-12-29] VITALS (16 sets, daily range): BP systolic 106–137; BP diastolic 63–92
[~2021-12-29] VITALS: Ht 157.5 cm; Wt 122.7 kg
[~2021-12-29 02:15] MED LIST changes: +TESSALON PERLE100 MG PO; +ZPAK PO
[2021-12-29 02:39] LABS: HEMATOCRIT 33.7 % (37.0-47.0); HEMOGLOBIN 11.2 g/dl (12.0-16.0); IMMATURE GRANULOCYTES 0.6 % (0.0-5.0); MEAN CELL VOLUME 74.9 fL CALC (80.0-100.0); MEAN CORPUSCULAR HGB 24.9 pG CALC (26.0-32.0); MEAN CORPUSCULAR HGB CONC 33.2 g/dL CAL (32.0-36.0); NEUT# 3.71 thou/uL (2.00-7.15); RED BLOOD COUNT 4.5 mill/uL (4.20-5.60)
[2021-12-29 02:55] LABS: ALBUMIN 3.9 g/dL (3.2-5.0); ALKALINE PHOSPHATASE 81 u/l (38-126); ANION GAP 10 (6-22 (CALC)); BILIRUBIN, TOTAL 0.3 mg/dL (0.0-1.4); BUN 6 mg/dL (7-17); BUN/CREATININE RATIO 10 (12-20 (CALC)); CARBON DIOXIDE 29 mmol/l (22-30); CHLORIDE 106 mmol/l (95-108); CREATININE 0.6 mg/dL (0.5-1.0); GFR FOR AFR.AMER. > 60 ML/MIN (>=60 (CALC)); GFR OTHER RACES > 60 ML/MIN (>=60 (CALC)); POTASSIUM 3.8 mmol/l (3.5-5.1); SGOT/AST 27 u/l (14-36); SODIUM 141 mmol/l (137-146); TOTAL PROTEIN 7.1 g/dL (6.3-8.2)
[2021-12-29 03:07] LABS: MYOGLOBIN 13 ng/mL (0 - 62)
[2021-12-29 03:07] LABS: URINE BILIRUBIN - DIPSTICK NEGATIVE (NEGATIVE); URINE BLOOD DIPSTICK NEGATIVE (NEGATIVE); URINE COLOR YELLOW; URINE GLUCOSE - DIPSTICK NEGATIVE (NEGATIVE); URINE KETONE NEGATIVE (NEGATIVE); URINE LEUK ESTERASE SMALL (NEGATIVE); URINE NITRITE - DIPSTICK NEGATIVE (Negative); URINE PROTEIN - DIPSTICK NEGATIVE (NEG-TRACE); URINE UROBILINOGEN - DIPSTICK 0.2 E.U./dL (0.2)
[2021-12-29 03:12] LABS: URINE BACTERIA MODERATE hpf; URINE MUCUS FEW hpf (NONE-FEW); URINE SQUAMOUS EPITHELIAL CELL FEW EPI/hpf (0-FEW)
== END 2021-12-29 06:59 | disposition home or self-care (01) ==
LOC: ED 02:15
PROVIDERS: Emergency Medicine
DX: G40.909 Epilepsy, unspecified, not intractable, without status epilepticus (principal)
CPT/HCPCS: J1953

== ENCOUNTER 2022-12-16 12:08 | Emergency (ER) | payer BC, OTHER ==
[~2022-12-16] VITALS: Ht 157.5 cm; Wt 79.0 kg
[2022-12-16 12:19] VITALS: BP 124/69
[2022-12-16 12:46] VITALS: BP 122/72
[2022-12-16 13:00] VITALS: BP 121/69
[2022-12-16] MEDS ORDERED: NAPROXEN500 MG PO (13:01)
[2022-12-16 13:04] VITALS: BP 121/69
== END 2022-12-16 13:10 | disposition home or self-care (01) | DRG 556 ==
LOC: ED 12:08
DX: M25.561 Pain in right knee (principal); I10 Essential (primary) hypertension; E11.9 Type 2 diabetes mellitus without complications; G40.909 Epilepsy, unspecified, not intractable, without status epilepticus; Z79.84 Long term (current) use of oral hypoglycemic drugs

== ENCOUNTER 2023-01-29 11:06 | Emergency (ER) | payer OTHER, BC ==
[~2023-01-29] VITALS: Ht 157.5 cm; Wt 75.4 kg
[~2023-01-29 11:06] MED LIST changes: +NAPROXEN500 MG PO
[2023-01-29 11:35] VITALS: BP 124/83
[2023-01-29 11:45] VITALS: BP 109/74
== END 2023-01-29 12:30 | disposition home or self-care (01) | DRG 556 ==
LOC: ED 11:06
DX: M25.561 Pain in right knee (principal); I10 Essential (primary) hypertension; E11.9 Type 2 diabetes mellitus without complications; G40.909 Epilepsy, unspecified, not intractable, without status epilepticus; Z79.84 Long term (current) use of oral hypoglycemic drugs

== ENCOUNTER 2023-11-09 17:56 | Emergency (ER) | payer BC, OTHER ==
[~2023-11-09] VITALS: Ht 157.5 cm; Wt 81.6 kg
[2023-11-09 18:01] VITALS: BP 124/75
[2023-11-09 18:25] LABS: URINE BILIRUBIN - DIPSTICK Negative (NEGATIVE); URINE BLOOD DIPSTICK Negative (NEGATIVE); URINE COLOR Yellow; URINE GLUCOSE - DIPSTICK Negative (NEGATIVE); URINE KETONE Negative (NEGATIVE); URINE LEUK ESTERASE Trace (NEGATIVE); URINE NITRITE - DIPSTICK Negative (Negative); URINE PROTEIN - DIPSTICK Negative (NEG-TRACE); URINE UROBILINOGEN - DIPSTICK 0.2 E.U./dL (0.2)
[2023-11-09] MEDS ORDERED: traMADol HCL 50 MG/TAB PO ONE (18:25)
[2023-11-09 19:01] VITALS: BP 109/51
[2023-11-09 19:15] VITALS: BP 132/76
[2023-11-09] MEDS ORDERED: METHOCARBAMOL500 MG PO (19:32)
[2023-11-09 19:47] VITALS: BP 132/76
== END 2023-11-09 19:47 | disposition home or self-care (01) | DRG 605 ==
LOC: ED 17:56
PROVIDERS: Nurse Practitioner
DX: S70.02XA Contusion of left hip, initial encounter (principal); R51.9 Headache, unspecified; I10 Essential (primary) hypertension; E11.9 Type 2 diabetes mellitus without complications; G40.909 Epilepsy, unspecified, not intractable, without status epilepticus; Z79.84 Long term (current) use of oral hypoglycemic drugs; Y04.2XXA Assault by strike against or bumped into by another person, initial encounter

== ENCOUNTER 2024-01-29 21:55 | Emergency (ER) | payer BC, OTHER ==
[2024-01-29] VITALS (7 sets, daily range): BP systolic 101–121; BP diastolic 67–79
[~2024-01-29] VITALS: Ht 157.5 cm; Wt 90.0 kg
[~2024-01-29 21:55] MED LIST changes: +METHOCARBAMOL500 MG PO
[2024-01-29] MEDS ORDERED: SODIUM CHLORIDE 0.9% 1,000 ML IV ONE (22:10)
[2024-01-29 22:30] LABS: BASO% 0.3 % (0-3); EOS% 1.5 % (0-8); HEMATOCRIT 38.6 % (37.0-47.0); HEMOGLOBIN 12.4 g/dl (12.0-16.0); IMMATURE GRANULOCYTES 0.4 % (0.0-5.0); LYMPH% 37.9 % (15-41); MEAN CELL VOLUME 75.8 fL CALC (80.0-100.0); MEAN CORPUSCULAR HGB 24.4 pG CALC (26.0-32.0); MEAN CORPUSCULAR HGB CONC 32.1 g/dL CAL (32.0-36.0); MONO% 6.8 % (2-13); NEUT# 3.9 thou/uL (2.00-7.15); NEUT% 53.1 % (42-76); RED BLOOD COUNT 5.09 mill/uL (4.20-5.60); RED CELL DISTRI WIDTH 14.4 % (11.5-15.5)
[2024-01-29 22:41] LABS: ALBUMIN 4.4 g/dL (3.2-5.0); BILIRUBIN, TOTAL 0.4 mg/dL (0.02-1.3); CREATININE 0.5 mg/dL (0.5-1.0); POTASSIUM 4.2 mmol/l (3.5-5.1); TOTAL PROTEIN 7.8 g/dL (6.3-8.2)
[2024-01-29 23:22] LABS: URINE BILIRUBIN - DIPSTICK Negative (NEGATIVE); URINE BLOOD DIPSTICK Negative (NEGATIVE); URINE GLUCOSE - DIPSTICK Negative (NEGATIVE); URINE KETONE Negative (NEGATIVE); URINE LEUK ESTERASE Negative (NEGATIVE); URINE NITRITE - DIPSTICK Negative (Negative); URINE PH 5.5 (4.5-8.0); URINE PROTEIN - DIPSTICK Negative (NEG-TRACE); URINE UROBILINOGEN - DIPSTICK 0.2 E.U./dL (0.2)
[2024-01-29 23:26] LABS: URINE COLOR Yellow
[2024-01-29] MEDS ORDERED: KEPPRA500 M2 PO (23:41)
== END 2024-01-29 23:51 | disposition home or self-care (01) | DRG 101 ==
LOC: ED 21:55
PROVIDERS: Family Medicine
DX: G40.909 Epilepsy, unspecified, not intractable, without status epilepticus (principal); I10 Essential (primary) hypertension; E11.9 Type 2 diabetes mellitus without complications; E78.5 Hyperlipidemia, unspecified; Z79.84 Long term (current) use of oral hypoglycemic drugs; Z79.899 Other long term (current) drug therapy
CPT/HCPCS: J1953

== ENCOUNTER 2024-05-17 00:30 | Emergency (ER) | payer BC, OTHER ==
[2024-05-17] VITALS (15 sets, daily range): BP systolic 88–115; BP diastolic 44–75
[~2024-05-17] VITALS: Ht 157.5 cm; Wt 81.6 kg
[~2024-05-17 00:30] MED LIST changes: +LISINOPRIL10 MG PO; -LISINOPRIL5 MG PO
[2024-05-17] MEDS ORDERED: SODIUM CHLORIDE 0.9% 1,000 ML IV ONE (00:40)
[2024-05-17 01:24] LABS: BASO% 0.3 % (0-3); EOS% 3.1 % (0-8); HEMATOCRIT 33.5 % (37.0-47.0); IMMATURE GRANULOCYTES 0.2 % (0.0-5.0); LYMPH% 30.3 % (15-41); MEAN CELL VOLUME 73.5 fL CALC (80.0-100.0); MEAN CORPUSCULAR HGB 24.1 pG CALC (26.0-32.0); MEAN CORPUSCULAR HGB CONC 32.8 g/dL CAL (32.0-36.0); MONO% 8.3 % (2-13); NEUT# 3.78 thou/uL (2.00-7.15); NEUT% 57.8 % (42-76); RED BLOOD COUNT 4.56 mill/uL (4.20-5.60); RED CELL DISTRI WIDTH 15.9 % (11.5-15.5)
[2024-05-17 01:29] LABS: ALBUMIN 4.1 g/dL (3.2-5.0); BILIRUBIN, TOTAL 0.4 mg/dL (0.02-1.3); CREATININE 0.6 mg/dL (0.5-1.0); MAGNESIUM 1.9 mg/dL (1.6-2.3); POTASSIUM 3.8 mmol/l (3.5-5.1); TOTAL PROTEIN 7.4 g/dL (6.3-8.2)
[2024-05-17] MEDS ORDERED: LACTATED RINGER'S 1,000 ML IV ONE (03:25)
[2024-05-17 04:48] LABS: URINE BILIRUBIN - DIPSTICK Negative (NEGATIVE); URINE BLOOD DIPSTICK Negative (NEGATIVE); URINE GLUCOSE - DIPSTICK Negative (NEGATIVE); URINE KETONE Negative (NEGATIVE); URINE LEUK ESTERASE Negative (NEGATIVE); URINE NITRITE - DIPSTICK Negative (Negative); URINE PH 5.5 (4.5-8.0); URINE PROTEIN - DIPSTICK Negative (NEG-TRACE); URINE UROBILINOGEN - DIPSTICK 0.2 E.U./dL (0.2)
[2024-05-17 04:49] LABS: URINE COLOR Yellow
== END 2024-05-17 05:00 | disposition home or self-care (01) | DRG 101 ==
LOC: ED 00:30
PROVIDERS: Family Medicine
DX: G40.909 Epilepsy, unspecified, not intractable, without status epilepticus (principal); T42.6X6A Underdosing of other antiepileptic and sedative-hypnotic drugs, initial encounter; Z91.120 Patient's intentional underdosing of medication regimen due to financial hardship
CPT/HCPCS: J1953

== ENCOUNTER 2024-05-22 22:47 | Emergency (ER) | payer BC, OTHER ==
[~2024-05-22] VITALS: Ht 157.5 cm; Wt 83.0 kg
[2024-05-22 23:31] VITALS: BP 133/85
[2024-05-22 23:47] VITALS: BP 112/83
[2024-05-23 00:01] VITALS: BP 166/145
[2024-05-23 00:16] VITALS: BP 117/69
[2024-05-23] MEDS ORDERED: ACETAMINOPHEN 325 MG/TAB PO ONE (01:50)
[2024-05-23 01:55] VITALS: BP 117/69
== END 2024-05-23 01:55 | disposition home or self-care (01) | DRG 101 ==
LOC: ED 22:47
DX: G40.409 Other generalized epilepsy and epileptic syndromes, not intractable, without status epilepticus (principal); I10 Essential (primary) hypertension; E11.9 Type 2 diabetes mellitus without complications; Z79.84 Long term (current) use of oral hypoglycemic drugs